=== PATIENT | female | born 1980 | race Hispanic/Latino ===

== ENCOUNTER 2018-11-02 19:00 | Inpatient (IN) | payer SELFPAY ==
[~2018-11-02 19:00] MED LIST: PHENYLEPHRINE-NS 100 MCG/ML 10 ML SYRINGE ONE; Rocuronium Bromide 10 MG/ML (10ML VIAL) ONE
[2018-11-02] MEDS ORDERED: Norepinephrine 8 MG in Dextrose 5% in Water 242 ML IVPB PRN (19:04)
[2018-11-02] MEDS ORDERED: EPINEPHrine 1 MG/10 ML Abboject SYRINGE ONE (19:08)
[2018-11-02] MEDS ORDERED: Fentanyl 100 MCG/2 ML VIAL ONE ×2 (19:22→19:53)
[2018-11-02] MEDS ORDERED: Propofol 1,000 MG/100 ML VIAL IV ONE (19:22)
[2018-11-02] MEDS ORDERED: Rocuronium Bromide 10 MG/ML (10ML VIAL) ONE (19:28)
[2018-11-02] MEDS ORDERED: Midazolam HCl 2 mg/2 ml Vial ONE ×2 (19:28→19:53)
[2018-11-02 19:34] LABS: #Lymphocytes 0.3 thou/uL (1.20-3.40); #Monocytes 0.1 thou/uL (0.11-0.59); #Neutrophils 4.1 thou/uL (1.40-6.50); %Basophils 0.3 % (0.0-1.0); %Eosinophils 0.1 % (0.0-10.0); %Lymphocytes 7.3 % (21.0-51.0); %Monocytes 1.9 % (0.0-10.0); %Neutrophils 90.5 % (42.0-75.0); Hemoglobin 8.5 g/dL (12.0-16.0); Mean Corpuscular HGB CONC 31.7 g/dL (32.0-36.0); Mean Corpuscular Hemoglobin 28.1 pg (27.0-31.0); Mean Corpuscular Volume 88.6 fL (78.0-98.0); RBC Distribution Width 13.1 % (11.5-14.5); Red Blood Cell (RBC) Count 3.01 mill/uL (4.20-5.40); White Blood Cell (WBC) Count 4.5 thou/uL (4.8-10.8)
[2018-11-02 19:41] LABS: INR-International Normal Ratio 1.5; PTT 38.3 SEC (22.9-36.1); Prothrombin Time 17.9 SEC (12.0-14.7)
[2018-11-02] MEDS ORDERED: Succinylcholine Chloride 20 MG/ML 10 ml SYRINGE FS ONE (19:45)
[2018-11-02 19:49] LABS: Hypochromia SLIGHT = 6-15 cells (100X) (0-5/hpf); MDiff Complete? YES; Mean Platelet Volume 8.5 fL (7.4-10.4); Platelet Count 115 thou/uL (130-400); Platelet Morphology Comment Appears Decreased; Polychromasia SLIGHT = 2-3 cells (100X) (0-2/hpf)
--- NOTE | 2018-11-02 19:50 | RAD ---
EXAM: Portable supine chest INDICATIONS: Postintubation COMPARISON: None. FINDINGS: ET tube is above kadi and appears adequately positioned. NG tube appears in adequate posi tion. Central line has tip overlying right atrium. Borderline cardiomegaly and mild vascular congestion. No consolidation or focal infiltrate. IMPRESSION: Tubes and lines appear adequately positioned. Mild vascular congestion.
[2018-11-02] MEDS ORDERED: Oxytocin 10 UNITS/ML VIAL ONE ×2 (20:01→20:04)
[2018-11-02] MEDS ORDERED: Azithromycin 1,000 MG in Sodium Chloride 0.9% 500 ML IVPB SCH (20:30)
[2018-11-02 20:56] LABS: Actual Bicarbonate (HCO3a) 13.8 mEq/L (22-28); Base Excess (BEa) -12.8 mEq/L (-2.0 to +3.0); CO2 Tension 34.2 mmHg (35.0-45.0); Calcium, Ionized 1.05 mmol/L (1.12-1.30); Carboxyhemoglobin (COHb) 0.6 gm% (0.0-3.0); Hemoglobin (Hb) 9.6 g/dL (12.0-16.0); O2 Tension (PaO2) 103.8 mmHg (80.0-100.0); Potassium - ABG Lab 2.67 mmol/L (3.70-5.30)
[2018-11-02 21:06] LABS: Puncture Site RRA; pH, Arterial 7.22 (7.35-7.45)
[2018-11-02] MEDS ORDERED: DISCONTINUE PREVIOUS NARCOTIC PAIN MEDICATIONS AND BENZODIAZEPINES FS SCH (22:43)
[2018-11-02] MEDS ORDERED: fentaNYL Citrate/PF 2,000 MCG in Sodium Chloride 0.9% 60 ML IV SCH (22:43)
[2018-11-02] MEDS ORDERED: Lorazepam 2 MG/ML VIAL SLOW IVP PRN (22:43)
[2018-11-02] MEDS ORDERED: Propofol 1,000 MG/100 ML VIAL IV PRN (22:43)
[2018-11-02] MEDS ORDERED: Propofol BOLUS 1,000 MG/100 ML VIAL IV PRN (22:43)
[2018-11-02] MEDS ORDERED: Morphine 2 MG/ML SYRINGE SLOW IVP PRN (22:43)
[2018-11-02] MEDS ORDERED: Fentanyl BOLUS 250 ML IVPB PRN (22:43)
[2018-11-02] MEDS ORDERED: Piperacillin/Tazobactam 3.375 GM in Sodium Chloride 0.9% 100 ML IVPB SCH (23:00)
--- NOTE | 2018-11-02 23:17 | PDOC.EVN ---
Event Note - Event Note Event Note: Passed by ICU to see Ms Whittaker about 1-2hrs after post surgery. Pt stable on ivf. BP 130s systolic. Pulse 90s. Explained to family pt may be extubated in the morning if she continues to improve. I have discussed case with Dr Medellin who is managing her care tonight. Thanks for the help. addendum 11/03/18 0751 PT did well overnight and has remained stable only with mainenance iv fluids and abx. Pt is still intubated. SEdation decreased and pt able to communicate. She has confirmed family does not know she was and does not want us to share that with them. vital signs reviewed and stable and wnl a/p septic AB- on Zosyn, BC pending. Clinically looking much better since presentation. likely extubation and transfer to floor today. DR Medellin managing vent.
--- NOTE | 2018-11-02 23:30 | OP ---
DATE OF PROCEDURE: 11/02/2018 PREOPERATIVE DIAGNOSES: 1. Septic . 2. IUP at about 6 weeks gestation. POSTOPERATIVE DIAGNOSES: 1. Septic . 2. IUP at about 6 weeks gestation. PROCEDURE PERFORMED: Suction D and C. ANESTHESIA: General. COMPLICATIONS: None. CONDITION: Stable. COUNT: Correct. SPECIMENS: Products of conception. ESTIMATED BLOOD LOSS: About 100 mL. FINDINGS: Uterine sound at 11 cm, generous return with suction D and C and good hemostasis at conclusion of procedure. DESCRIPTION OF PROCEDURE: The patient was taken to the operating room already intubated and central line in place, which was performed in the emergency room given the patient's overall status at that time. She was then prepared and draped in normal sterile fashion in a dorsal lithotomy position in [facility]. Attention was placed vaginally, where with an operative speculum, the cervix was identified and grasped with a single-tooth tenaculum and the uterus was sounded to 11 cm. Cervix was dilated to accommodate a 7-German curved curette. After about 3 or 4 passes with generous return, the serrated sharp curette was then passed noting uterine cry in all 4 quadrants. A suction curette was then passed one more time to remove all remaining debris. The patient did have some bleeding which resolved with bimanual pressure. The tenaculum sites were made hemostatic with sponge stick. With the conclusion of the procedure, the patient was taken out of lithotomy position and then transferred to the ICU for immediate postoperative care. Anticipate extubation in the morning. Job ID: [id number]
[2018-11-03 01:51] VITALS: BMI 23.8
[2018-11-03] MEDS: Piperacillin/Tazobactam 3.375 GM in Sodium Chloride 0.9% 100 ML IVPB SCH ×4 (05:54→23:40)
--- NOTE | 2018-11-03 15:50 | CON ---
DATE OF CONSULTATION: 11/03/2018 SERVICE: Pulmonary/Critical Care. REASON FOR CONSULTATION: ICU patient. HISTORY OF PRESENT ILLNESS: The patient is a 38-year-old female with past medical history significant for that she did not want to keep. Apparently, the story goes that she attempted to give herself an . She became septic. As such, she was transferred from one Emergency Department to another Emergency Department for an emergency D and C procedure. She was hypotensive on presentation, got 4 L of fluid. A central line was placed, she was initiated on pressors. Overnight, she cleared her lactate. This morning, she is breathing comfortably. She cannot provide any additional elements of the history because the tube is currently in her throat. We know very little history about her. PAST MEDICAL HISTORY: None. PAST SURGICAL HISTORY: 1. section. 2. D and C. SOCIAL HISTORY: Unknown. FAMILY HISTORY: Noncontributory. ALLERGIES: NO KNOWN DRUG ALLERGIES. MEDICATIONS: List of her inpatient medications was reviewed and updated. REVIEW OF SYSTEMS: This cannot be obtained as the patient is currently intubated on the influence of some sedation. PHYSICAL EXAMINATION: VITAL SIGNS: Afebrile, pulse 85, blood pressure 87/60, respirations 20, and saturation 99% on 21% FiO2 and a PEEP of 5. HEENT: Normocephalic and atraumatic. Sclerae white. Conjunctivae pink. Oral mucosa is moist without lesions. LUNGS: Decent air entry. No prolonged expiratory phase or wheezing is appreciated. HEART: Normal rate. Regular. ABDOMEN: Soft, nontender, and nondistended. Bowel sounds positive. MUSCULOSKELETAL: No cyanosis or clubbing. There is no pitting in the bilateral lower extremities. NEUROLOGIC: Nonfocal. LABORATORY DATA: WBC 4.5, hemoglobin 8.5, and platelets 115,000. INR 1.5. A pH of 7.22, pCO2 of 34, and pO2 of 104. Lactate had improved to 0.8. Blood cultures x2 are unremarkable. ASSESSMENT: 1. Septic shock. 2. Septic , status post D and C, postop day #1. DISCUSSION AND PLAN: The patient will be placed on a spontaneous breathing trial after long sedation holiday. If she meets criteria, extubation will be considered. Her ongoing acidosis is likely a function of her aggressive volume resuscitation , which she needed. At this point; however, she does not need any IV fluids. If we extubate her, we will get her out of bed into a chair, and offer her a diet. I will repeat some laboratories tomorrow morning to make certain that her bicarb returns to the normal range. Pulmonary/Critical Care will follow along for the time being. Critical care time: 30 minutes. Job ID: [id number] MTDD
[2018-11-03] MEDS ORDERED: Sodium Chloride 0.9% 500 ML IV SCH (19:00)
[2018-11-03 19:07] LABS: #Basophils 0.1 thou/uL (0.0-0.2); #Lymphocytes 1.7 thou/uL (1.20-3.40); #Monocytes 0.6 thou/uL (0.11-0.59); #Neutrophils 4.6 thou/uL (1.40-6.50); %Eosinophils 0.3 % (0.0-10.0); %Lymphocytes 23.7 % (21.0-51.0); %Monocytes 9.2 % (0.0-10.0); %Neutrophils 65.8 % (42.0-75.0); Hemoglobin 8.4 g/dL (12.0-16.0); Mean Corpuscular HGB CONC 33.1 g/dL (32.0-36.0); Mean Corpuscular Hemoglobin 28.8 pg (27.0-31.0); Mean Platelet Volume 8.3 fL (7.4-10.4); Platelet Count 102 thou/uL (130-400); Red Blood Cell (RBC) Count 2.93 mill/uL (4.20-5.40)
[2018-11-03 19:22] LABS: Anion Gap 9 mmol/L (10-20); BUN (Urea Nitrogen) 4 mg/dL (7.0-18.7); Calc. Creatinine Clearance 142 mL/min (70-130); Calcium 7.4 mg/dL (7.8-10.44); Carbon Dioxide 17 mmol/L (22-29); Chloride 112 mmol/L (98-107); Estimated GFR-MDRD Greater than 90; Glucose 99 mg/dL (70-105); Magnesium 1.6 mg/dL (1.6-2.6); Sodium 135 mmol/L (136-145)
[2018-11-03 19:30] LABS: Potassium 2.5 mmol/L (3.5-5.1)
[2018-11-03] MEDS: Heparin 5,000 UNITS/ML VIAL SC SCH (19:44)
[2018-11-03] MEDS ORDERED: Potassium Chloride 20 MEQ TAB PO SCH (20:45)
[2018-11-03] MEDS ORDERED: Potassium Chloride 20 MEQ in Premix Bag 1 BAG IVPB SCH (20:45)
[2018-11-03 23:20] LABS: Bacteria/HPF None Seen HPF (None Seen); Bilirubin Negative (Negative); Blood, Urine Trace (Negative); Clarity Clear (Clear); Glucose, Urine (Dipstick) Normal (Negative); Leukocyte Negative Leu/uL (Negative); Nitrite Negative (Negative); Protein, Urine (Dipstick) Negative (Neg-Trace); Squamous Epithelial 0-3 HPF (0-3); Urobilinogen Normal mg/dL (Less than 2)
[2018-11-03 23:22] LABS: Urine Culture Reflex Yes Yes
[2018-11-03] MEDS: Acetaminophen 325 MG TAB PO PRN (23:39)
[2018-11-04] MEDS ORDERED: Ondansetron ODT 4 MG TAB PO PRN (01:00)
[2018-11-04] MEDS ORDERED: Ondansetron PF 4 MG/2 ML Vial IVP PRN (01:00)
[2018-11-04] MEDS ORDERED: Senokot S 8.6-50 MG TAB PO PRN (01:00)
[2018-11-04 01:41] LABS: Anion Gap 8 mmol/L (10-20); Carbon Dioxide 19 mmol/L (22-29); Chloride 112 mmol/L (98-107); Sodium 136 mmol/L (136-145)
[2018-11-04 01:51] LABS: Potassium 2.9 mmol/L (3.5-5.1)
--- NOTE | 2018-11-04 02:01 | CON ---
DATE OF CONSULTATION: 11/03/2018 REFERRING PHYSICIAN: Dr. Medellin REASON FOR CONSULTATION: Medical management. HISTORY OF PRESENT ILLNESS: Ms. Whittaker is a 38-year-old woman, who presented to the emergency department on November 02, 2018 as a transfer from [place] due to sepsis following an attempt on self via insertion of surgical tubing and drinking marked amount of castor oil. The patient was approximately 6 weeks . She presented to [place] with a temperature of 104.4. The patient was noted to be hypotensive with a systolic blood pressure in the 90s. Per flight crew report, she had a saturation of 90% on 2 L and 94% on room air. She was given IV antibiotics including Zosyn and Flagyl as well as IV fluids. On arrival to the emergency department here, the patient had been complaining of abdominal pain. The patient ended up being intubated while in the emergency department and was admitted to the CCU with septic shock. She was seen by Dr. Burns, who performed a D and C. She remained stable on IV fluids and her blood pressure improved to the 130s. The patient was extubated yesterday. Per Dr. Burns, she felt to be improving and remained for extubation and transfer to the floor today. The patient was being managed by Dr. Medellin, who placed the patient on a spontaneous breathing trial after a long sedation. He felt her ongoing acidosis was likely due to aggressive volume repletion. IV fluids were no longer deemed necessary, therefore, those have been discontinued. He continues to follow. The patient has now been transferred to the floor and is doing well. She denies any complaints at this present time. Denies any pain. Denies any chest pain or difficulty breathing. Has not experienced any vaginal bleeding. She has tolerated fluid intake, but has had minimal food intake due to lack of appetite. The patient states she has been mobilizing to the toilet, but feeling lightheaded. No laboratory studies done since yesterday. The patient remains afebrile. Her blood pressure is in the high 80s to 90s. PAST MEDICAL HISTORY: None. PAST SURGICAL HISTORY: 1. Previous . 2. Status post D and C due to septic . SOCIAL HISTORY: Denies any tobacco use or drug use. No alcohol use. ALLERGIES: NONE. CURRENT MEDICATIONS: None. PHYSICAL EXAMINATION: GENERAL: The patient appears well developed, well nourished, is in no acute distress. VITAL SIGNS: Temperature 98.4, pulse 91, respirations 16, O2 saturation 100 on room air, blood pressure 97/55. HEENT: Normocephalic and atraumatic. Pupils are equal, round, and reactive to light. Sclerae icterus. Oropharynx is clear. NECK: Supple. LUNGS: Clear to auscultation bilaterally. CARDIAC: Regular rate and rhythm. ABDOMEN: Soft, nontender, nondistended. No guarding or rigidity. EXTREMITIES: No lower leg swelling or edema. Mechanical SCDs in place. NEUROLOGIC: Alert and oriented x3. SKIN: The patient appears pale, but skin is warm and dry. IMPRESSION AND PLAN: Ms. Whittaker is a 38-year-old woman, who is admitted with septic shock following self attempted incomplete . She is status post extubation and cleared for transfer to the floor. She remains hypotensive and symptomatic. We will resume IV fluids and we will also obtain CBC and BMP as well as lactic acid. We will request orthostatic blood pressure and urinalysis. The patient has no medical comorbidities. She is currently without any complaints. She was encouraged to increase her oral intake as tolerated. We will check orthostatic blood pressures. Last hemoglobin checked yesterday was 8.5, we will transfuse if needed. Case discussed with attending, who agrees with plan of care as described above. Job ID: [id number] MTDD
[2018-11-04] MEDS ORDERED: Potassium Chloride 20 MEQ TAB PO SCH ×2 (05:00→07:00)
[2018-11-04] MEDS: Acetaminophen 325 MG TAB PO PRN ×2 (05:38→13:22)
[2018-11-04] MEDS: Piperacillin/Tazobactam 3.375 GM in Sodium Chloride 0.9% 100 ML IVPB SCH ×4 (05:42→23:09)
[2018-11-04 06:15] LABS: #Basophils 0.1 thou/uL (0.0-0.2); #Lymphocytes 1.3 thou/uL (1.20-3.40); #Monocytes 0.6 thou/uL (0.11-0.59); #Neutrophils 8.2 thou/uL (1.40-6.50); %Basophils 0.5 % (0.0-1.0); %Eosinophils 0.3 % (0.0-10.0); %Monocytes 5.7 % (0.0-10.0); %Neutrophils 80.5 % (42.0-75.0); Hemoglobin 8.8 g/dL (12.0-16.0); Mean Corpuscular HGB CONC 33.8 g/dL (32.0-36.0); Mean Corpuscular Hemoglobin 29.1 pg (27.0-31.0); Mean Platelet Volume 8.4 fL (7.4-10.4); Platelet Count 112 thou/uL (130-400); RBC Distribution Width 13.2 % (11.5-14.5); Red Blood Cell (RBC) Count 3.04 mill/uL (4.20-5.40); White Blood Cell (WBC) Count 10.1 thou/uL (4.8-10.8)
[2018-11-04 06:17] LABS: Anion Gap 8 mmol/L (10-20); BUN (Urea Nitrogen) Less than 4 mg/dL (7.0-18.7); Calc. Creatinine Clearance 140 mL/min (70-130); Calcium 7.9 mg/dL (7.8-10.44); Carbon Dioxide 19 mmol/L (22-29); Chloride 111 mmol/L (98-107); Estimated GFR-MDRD Greater than 90; Glucose 100 mg/dL (70-105); Sodium 135 mmol/L (136-145)
[2018-11-04 06:20] LABS: Potassium 2.8 mmol/L (3.5-5.1)
[2018-11-04] MEDS: Heparin 5,000 UNITS/ML VIAL SC SCH ×2 (08:08→20:56)
[2018-11-04] MEDS: Famotidine/PF 20 mg/2ml Vial SLOW IVP SCH ×2 (08:08→20:56)
[2018-11-04] MEDS ORDERED: Sodium Chloride 0.9% 1,000 ML IV SCH ×2 (10:00→15:19)
--- NOTE | 2018-11-04 14:37 | PDOC.HOSPP ---
- Subjective Subjective: f/u for septic on current Zosyn. Fever spike this am but pt states she feels better overall. - Objective Vital Signs & Weight: Vital Signs (12 hours) Temp Pulse Resp BP BP BP Pulse Ox 11/04/18 12:00 99.4 F 102 H 16 98/67 96 11/04/18 09:00 24 H 96/63 11/04/18 08:13 99.0 F 95 14 104/69 98 11/04/18 08:00 98 11/04/18 06:18 100.5 F H 102 H 22 H 102/62 95 11/04/18 04:00 101.4 F H 109 H 18 97/61 93 L Weight Weight 143 lb 4.807 oz Most Recent Monitor Data Heart Rate from ECG 85 NIBP 87/60 NIBP BP-Mean 69 Respiration from ECG 20 SpO2 99 I&O: 11/03/18 11/04/18 11/05/18 06:59 06:59 06:59 Intake Total 698.8 489.6 Output Total 870 350 Balance -171.2 139.6 Result Diagrams: 11/04/18 05:30 11/04/18 05:30 Additional Labs: Microbiology 11/03/18 23:21 Urine clean catch Urine Culture - Preliminary NO GROWTH AT 12 HOURS 11/02/18 20:52 Venous blood - Left Hand Blood Culture - Preliminary NO GROWTH AT 48 HOURS 11/02/18 20:42 Central Line - Right Internal Jugular vein Blood Culture - Preliminary NO GROWTH AT 48 HOURS Laboratory Tests 11/02/18 11/03/18 11/03/18 19:06 18:54 18:54 Hgb 8.5 L 8.4 L Potassium 2.5 L* Carbon Dioxide 17 L 11/04/18 01:15 Hgb Potassium 2.9 L* Carbon Dioxide 19 L ROS - Review of Systems All systems: All other ROS were reviewed and found negative. - Medication Medications: Active Medications Generic Name Dose Route Start Last Admin Trade Name Freq PRN Reason Stop Dose Admin Acetaminophen 650 mg 11/03/18 17:49 11/04/18 13:22 Tylenol PO 650 mg Q4H PRN Administration Fever > 101 Famotidine 20 mg 11/04/18 09:00 11/04/18 08:08 Pepcid SLOW IVP 20 mg Q12HR FAZAL Administration Heparin Sodium (Porcine) 5,000 units 11/03/18 21:00 11/04/18 08:08 Heparin SC 5,000 units BID FAZAL Administration Piperacillin Sod/Tazobactam 100 mls @ 200 mls/hr 11/03/18 06:00 11/04/18 13: 20 Sod 3.375 gm/ Sodium Chloride IVPB 100 mls Q6HR FAZAL Administration Sodium Chloride 1,000 mls @ 125 mls/hr 11/04/18 10:00 11/04/18 09:56 Normal Saline 0.9% IV 1,000 mls INF FAZAL Administration - Exam NAD, awake alert Eye: PERRL, anicteric sclera ENT: normocephalic atraumatic, no oropharyngeal lesions Neck: supple, symmetric, no JVD, no Thyromegaly Heart: RRR, no murmur, no gallops, no rubs Respiratory: CTAB, no wheezes, no rales, no ronchi Gastrointestinal: soft, non-tender, non-distended, normal bowel sounds Extremities: no cyanosis, no clubbing, no edema Neurological: CN's grossly intact, no new deficit Psychiatric: normal behavior, A&O x 3 Hosp A/P (1) with septicemia Code(s): O03.87 - SEPSIS FOLLOWING COMPLETE OR UNSP SPONTANEOUS Status: Acute Plan: s/p I&D, continue IVF's, continue Zosyn, initial blood cx negative x 2 (2) Hypokalemia Code(s): E87.6 - HYPOKALEMIA Status: Acute Plan: KCL replacement, serial K+ monitoring (3) Normocytic anemia Code(s): D64.9 - ANEMIA, UNSPECIFIED Status: Acute Plan: Stable currently, no transfusion warranted, serial H/H (4) Acute respiratory failure with hypoxia Code(s): J96.01 - ACUTE RESPIRATORY FAILURE WITH HYPOXIA Status: Acute Plan: s/p intubation, tolerating RA currently - Plan continue antibiotics, certified social workers in health care, out of bed/ambulate, DVT proph w/SCDs Stable currently Monitor temperature trend Continue Zosyn Continue IVF's AM lab: BMP, CBC, Mg++
[2018-11-04] MEDS ORDERED: Magnesium Sulfate 2 GM in Sodium Chloride 0.9% 100 ML IVPB SCH (15:30)
--- NOTE | 2018-11-04 15:53 | PRG ---
DATE OF SERVICE: 11/04/2018 SERVICE: Pulmonary Medicine. INTERVAL HISTORY: The patient is doing fine from respiratory standpoint. She is breathing comfortably. She has no complaints of nausea, vomiting, or diarrhea. She has some marginal blood pressures last night, got an additional liter of fluid. That being said, she was asymptomatic to it, never had mentation issues, urine output remained excellent all night. PHYSICAL EXAMINATION: VITAL SIGNS: Currently, afebrile with a T-max of 101.4 overnight. Pulse 102, blood pressure 98/67, respirations 16, saturation 96% on room air. GENERAL: The patient is awake and alert, in no apparent distress. LUNGS: There are good air entry with no prolonged expiratory phase. No wheezing or crackles are appreciated. HEART: Normal rate, regular. ABDOMEN: Soft, nontender, nondistended. Bowel sounds are positive. MUSCULOSKELETAL: No cyanosis or clubbing. No pitting in the bilateral lower extremities. NEUROLOGIC: Nonfocal. LABORATORY DATA: WBC 10.1, hemoglobin 8.8, platelets 112,000. Potassium 2.8, magnesium 1.6. Otherwise, basic metabolic profile is unremarkable. Blood cultures x2 and urine culture negative to date. ASSESSMENT: 1. Septic shock, resolved. 2. Hypokalemia. 3. Hypomagnesemia. DISCUSSION AND PLAN: Her potassium and magnesium will be replaced. At this point, she has no further requirements for inpatient Pulmonary Critical Care opinion, and I will sign off. Please call with additional questions or concerns through time. Job ID: [id number]
[2018-11-04] MEDS ORDERED: Magnesium 2 GM/50 ML 2 GM in Premix Bag 1 BAG IVPB SCH (16:15)
[2018-11-04] MEDS: Potassium Chloride 20 MEQ TAB PO SCH (16:57)
--- NOTE | 2018-11-04 16:58 | PDOC.EVN ---
Event Note - Event Note Event Note: POD #2 s/p emergent D&C for septic . Pt extubated and stable out of ICU now for one day. Pt reports she is feeling okay. She is very grateful for everyones care. About to get up to shower. denies pain. vital signs 99.7 tmax 101.4 this am 0400. bp 90/57 p 98 rr 20 PE: NAD abdomen soft NTTP k. 2.8 mg 1.6 A/P 1/ septic s/p D&C stable on zosyn. bcx neg to date. febrile in the last 24hrs. will continue abx 2. hypo K- PT has recieved 80meq today by IM . Will order another 40meq now and and other 40 in the AM. with meal . will recheck in morning 3. hypo mag. 2gm supplemented by Dr Medellin. Will check in AM 4. At pt request family has not been informed of the nature of her illness. Continue in house care and reassess in the next couple of days. Regular diet DVT prophylaxis scd'd for GI prophylaxis pepcid addendum labs this am k 3.5 mag 2.2
[2018-11-04] MEDS: Sodium Chloride 0.9% 1,000 ML IV SCH ×2 (16:59→23:10)
[2018-11-04] MEDS: Acetaminophen 500 MG TAB PO PRN (19:46)
[2018-11-05] MEDS: Piperacillin/Tazobactam 3.375 GM in Sodium Chloride 0.9% 100 ML IVPB SCH ×4 (05:45→23:25)
[2018-11-05] MEDS: Acetaminophen 500 MG TAB PO PRN (05:50)
[2018-11-05 06:49] LABS: Anion Gap 10 mmol/L (10-20); BUN (Urea Nitrogen) 6 mg/dL (7.0-18.7); Calc. Creatinine Clearance 135 mL/min (70-130); Calcium 8.1 mg/dL (7.8-10.44); Carbon Dioxide 19 mmol/L (22-29); Chloride 109 mmol/L (98-107); Estimated GFR-MDRD Greater than 90; Glucose 91 mg/dL (70-105); Magnesium 2.2 mg/dL (1.6-2.6); Potassium 3.5 mmol/L (3.5-5.1); Sodium 134 mmol/L (136-145)
[2018-11-05 06:54] LABS: #Eosinphils 0.1 thou/uL (0.0-0.7); #Lymphocytes 1.9 thou/uL (1.20-3.40); #Monocytes 0.5 thou/uL (0.11-0.59); #Neutrophils 4.3 thou/uL (1.40-6.50); %Basophils 0.4 % (0.0-1.0); %Lymphocytes 27.4 % (21.0-51.0); %Monocytes 7.9 % (0.0-10.0); %Neutrophils 63.3 % (42.0-75.0); Hemoglobin 7.7 g/dL (12.0-16.0); Mean Corpuscular HGB CONC 33.6 g/dL (32.0-36.0); Mean Corpuscular Hemoglobin 29.1 pg (27.0-31.0); Mean Corpuscular Volume 86.7 fL (78.0-98.0); Mean Platelet Volume 8.6 fL (7.4-10.4); Platelet Count 124 thou/uL (130-400); RBC Distribution Width 13.2 % (11.5-14.5); Red Blood Cell (RBC) Count 2.65 mill/uL (4.20-5.40); White Blood Cell (WBC) Count 6.8 thou/uL (4.8-10.8)
[2018-11-05] MEDS: Potassium Chloride 20 MEQ TAB PO SCH (08:38)
[2018-11-05] MEDS: Famotidine/PF 20 mg/2ml Vial SLOW IVP SCH ×2 (08:38→20:04)
[2018-11-05] MEDS: Heparin 5,000 UNITS/ML VIAL SC SCH ×2 (08:38→20:04)
--- NOTE | 2018-11-05 10:04 | PDOC.EVN ---
Event Note - Event Note Event Note: Report given to me by Dr. Burns. POD#3 s/p D&C for septic incomplete AB. Remains on Zosyn. T to 101.4 last PM. VSS AF this AM. Abdomen is soft and NT. Lochia is small. Plan: Will cont. ABX until 48 hrs. AF.
[2018-11-05] MEDS: Sodium Chloride 0.9% 1,000 ML IV SCH (17:31)
[2018-11-06] MEDS: Acetaminophen 500 MG TAB PO PRN (01:33)
--- NOTE | 2018-11-06 03:46 | PDOC.EVN ---
Event Note - Event Note Event Note: POD4 No c/o this AM. VSS AF since 11/04 ~1899 Abdomen is soft and NT. Cultures remain negative. Plan: Cont. ABX x at least 48 hrs AF.
[2018-11-06] MEDS: Piperacillin/Tazobactam 3.375 GM in Sodium Chloride 0.9% 100 ML IVPB SCH ×3 (05:11→17:41)
[2018-11-06 07:00] LABS: Anion Gap 12 mmol/L (10-20); BUN (Urea Nitrogen) 6 mg/dL (7.0-18.7); Calc. Creatinine Clearance 140 mL/min (70-130); Calcium 8.2 mg/dL (7.8-10.44); Carbon Dioxide 18 mmol/L (22-29); Chloride 109 mmol/L (98-107); Estimated GFR-MDRD Greater than 90; Glucose 81 mg/dL (70-105); Magnesium 2.1 mg/dL (1.6-2.6); Potassium 3.5 mmol/L (3.5-5.1); Sodium 135 mmol/L (136-145)
[2018-11-06] MEDS: Sodium Chloride 0.9% 1,000 ML IV SCH ×2 (07:55→20:22)
[2018-11-06] MEDS: Heparin 5,000 UNITS/ML VIAL SC SCH ×2 (07:55→20:09)
[2018-11-06] MEDS: Famotidine/PF 20 mg/2ml Vial SLOW IVP SCH ×2 (07:55→20:09)
[2018-11-07] MEDS: Piperacillin/Tazobactam 3.375 GM in Sodium Chloride 0.9% 100 ML IVPB SCH ×2 (00:20→05:09)
[2018-11-07] MEDS: Sodium Chloride 0.9% 1,000 ML IV SCH (05:09)
--- NOTE | 2018-11-07 06:22 | PDOC.EVN ---
Event Note - Event Note Event Note: DISCHARGE NOTE Admit date: 11/02/18 Discharge date: 11/07/18 DX: Septic AB Obstetrical D&C Course: This patient was admitted with Dr Burns human resource professional, as a 6-7 week septic AB. She underwent D&C on 11/02/[address] burns. She was placed on zosyn antibiotics. Blood culture was negative to date. I evaluated the patient at bedside on 11/07/18 and found her stable for DC to home. Last temp was 11/04/18 in the PM. She was tolerating po well. Vitals reviewed pre-discharge planning. I recommended she follow up at [facility] in 2 weeks. As afebrile for greater than 48 hours and the infected contents were removed, no home antibiotics prescribed.
[2018-11-07] MEDS: Heparin 5,000 UNITS/ML VIAL SC SCH (07:40)
[2018-11-07] MEDS: Famotidine/PF 20 mg/2ml Vial SLOW IVP SCH (07:40)
[2018-11-07] MEDS: Acetaminophen 500 MG TAB PO PRN ×2 (07:40→13:41)
[2018-11-07 08:22] VITALS: BP 112/66; TEMP 97.6
[2018-11-07 09:23] LABS: Anion Gap 8 mmol/L (10-20); BUN (Urea Nitrogen) Less than 4 mg/dL (7.0-18.7); Calc. Creatinine Clearance 135 mL/min (70-130); Calcium 8.4 mg/dL (7.8-10.44); Carbon Dioxide 23 mmol/L (22-29); Chloride 108 mmol/L (98-107); Estimated GFR-MDRD Greater than 90; Glucose 87 mg/dL (70-105); Potassium 3.4 mmol/L (3.5-5.1); Sodium 136 mmol/L (136-145)
== END 2018-11-07 16:57 | disposition home or self-care (01) | DRG 770 ==
LOC: ERS 19:00 → SDC/OP 19:53 → CCU 20:23 → T4-B 11-03 13:22
PROVIDERS: ADMIT Obstetrics & Gynecology; ATTEND Obstetrics & Gynecology
PROC: 10D17ZZ Extraction of Products of Conception, Retained, Via Natural or Artificial Opening (ICD-10-PCS; principal; 2018-11-02)
DX: O07.37 Sepsis following failed attempted termination of pregnancy (principal); A41.9 Sepsis, unspecified organism; R65.21 Severe sepsis with septic shock; J96.01 Acute respiratory failure with hypoxia; E87.6 Hypokalemia; D64.9 Anemia, unspecified; E83.42 Hypomagnesemia
CPT/HCPCS: 31500; 36415; 36556; 71045; 80048; 81001; 82805; 83605; 83735; 85025; 86850; 86900; 86901; 87086; 88305; 93005; 94002; 94003; 94760; J0171; J0456; J1644; J2060; J2250; J2543; J2590; J2704; J3010; J3475; J3480; J3490; J7050; J7070; S0028